=== PATIENT | male | born 1945 | race Caucasian/White ===

== ENCOUNTER 2018-01-12 10:05 | Emergency (ER) | payer MEDICARE, OTHER ==
--- NOTE | 2018-01-12 10:44 | ER Document Report ---
ED Medical Screen (RME) - General Chief Complaint: Swelling Stated Complaint: RIGHT FOOT/ANKLE SWELLING Mode of Arrival: Wheelchair TRAVEL OUTSIDE OF THE [place] IN LAST 30 DAYS: No - HPI Notes: 01/12/18 10:41 72 yr old with c/o of RLL and foot with swelling and scant erythema x 3 days ago. worse with time, nothing makes better. denies any cp, sob, n/v/d. no otc meds tried. pt is wheelchair bound. Noted weakness on his right side from a prior CVA. takes a baby asa. No fevers or chills. denies any pain. I have greeted and performed a rapid initial assessment of this patient. A comprehensive ED assessment and evaluation of the patient, analysis of test results and completion of medical decision making process will be conducted by an additional ED providers - Related Data Allergies/Adverse Reactions: quetiapine [Quetiapine] Adverse Reaction (Severe, Verified 01/12/18 10:10) Hallucinations Past Medical History - Past Medical History Cardiac Medical History: Reports: Hx Atrial Fibrillation - Intermittent, Hx Hypercholesterolemia, Hx Hypertension Neurological Medical History: Reports: Hx Cerebrovascular Accident Past Surgical History: Reports: Hx Abdominal Surgery, Hx Tonsillectomy - Immunizations Immunizations up to date: Yes Hx Diphtheria, Pertussis, Tetanus Vaccination: Yes Physical Exam - Vital signs Vitals: Temp Pulse Resp BP Pulse Ox 98.8 F 73 16 119/78 93 01/12/18 10:17 01/12/18 10:17 01/12/18 10:17 01/12/18 10:17 01/12/18 10:17 - Respiratory Respiratory status: No respiratory distress Chest status: Nontender Breath sounds: Normal Chest palpation: Normal - Cardiovascular Rhythm: Regular Murmur: Yes - Abdominal Notes: noted swelling of right lower calf with erythema, scant pitting edema. skin warm to touch. no open wounds. distal pulses + 2 bilaterally Course - Vital Signs Vital signs: Temp Pulse Resp BP Pulse Ox 98.8 F 73 16 119/78 93 01/12/18 10:17 01/12/18 10:17 01/12/18 10:17 01/12/18 10:17 01/12/18 10:17
[2018-01-12 11:52] LABS: ABSOLUTE EOSINOPHILS # (AUTO) 0.2 10^3/uL (0.0-0.6); ABSOLUTE LYMPHOCYTES (AUTO) 2.7 10^3/uL (0.5-4.7); ABSOLUTE MONOCYTES (AUTO) 0.6 10^3/uL (0.1-1.4); ABSOLUTE NEUT (AUTO) 3.9 10^3/uL (1.7-8.2); BASOPHILS % (AUTO) 0.6 % (0-2); EOSINOPHILS % (AUTO) 2.8 % (0-6); HEMATOCRIT 50.6 % (37.9-51.0); HEMOGLOBIN 17.3 g/dL (13.5-17.0); LYMPHOCYTES % (AUTO) 35.7 % (13-45); MEAN CORPUSCULAR HEMOGLOBIN 30.8 pg (27.0-33.4); MEAN CORPUSCULAR HGB CONC 34.2 g/dL (32.0-36.0); MEAN CORPUSCULAR VOLUME 90 fl (80-97); MONOCYTES % (AUTO) 8.5 % (3-13); PLATELET COUNT 182 10^3/uL (150-450); RED BLOOD COUNT 5.61 10^6/uL (4.35-5.55); RED CELL DISTRIBUTION WIDTH 13.4 % (11.5-14.0); SEGMENTED NEUTROPHILS % (AUTO) 52.4 % (42-78); TOTAL CELLS COUNTED % (AUTO) 100 %; WHITE BLOOD COUNT 7.5 10^3/uL (4.0-10.5)
[2018-01-12 12:16] LABS: ALANINE AMINOTRANSFERASE 72 U/L (21-72); ALBUMIN 4.4 g/dL (3.5-5.0); ALKALINE PHOSPHATASE 61 U/L (38-126); ANION GAP 10 (5-19); ASPARTATE AMINO TRANSFERASE 35 U/L (17-59); BILIRUBIN,DIRECT 0.2 mg/dL (0.0-0.4); BILIRUBIN,TOTAL 0.6 mg/dL (0.2-1.3); BLOOD UREA NITROGEN 19 mg/dL (7-20); C-REACTIVE PROTEIN < 5.0 mg/L (<10.0); CALCIUM 10.2 mg/dL (8.4-10.2); CARBON DIOXIDE 27 mmol/L (22-30); CHLORIDE 105 mmol/L (98-107); GLUCOSE 119 mg/dL (75-110); POTASSIUM 4.5 mmol/L (3.6-5.0); SODIUM 142.2 mmol/L (137-145)
[2018-01-12 12:26] LABS: NT PRO BNP 72 pg/mL (5-900); TROPONIN I < 0.012 ng/mL
--- NOTE | 2018-01-12 13:28 | ER Document Report ---
ED General - General Chief Complaint: Swelling Stated Complaint: RIGHT FOOT/ANKLE SWELLING Mode of Arrival: Wheelchair Information source: Patient, Relative TRAVEL OUTSIDE OF THE [place] IN LAST 30 DAYS: No - HPI Notes: 72 yr old male with a history of CVA presents today with c/o of right lower extremity and foot with swelling x 3 days ago. worse with time, nothing makes better. Has not tried any elevation, compression stockings or reduction consult. Denies cardiac history. Denies any cp, sob, n/v/d. no otc meds tried. pt is wheelchair bound due to having intermittent weakness in his right side from a previous CVA. takes a baby asa. No fevers or chills. denies any pain or any trauma to right ankle or foot. Eating and drinking without issues. Denies fevers, chills, chest pain,palpitations, shortness of breath, dyspnea , nausea, vomiting, diarrhea, abdominal pain, hematuria,blurred vision, double vision, loss of vision, speech changes, LH, dizziness, syncope, headaches, wheezing, ST, URI, neck pain, weakness, bowel or bladder dysfunction, saddle anesthesia, numbness or tingling in bilateral upper or lower extremities equally , muscle paralysis, weakness in bilateral upper or lower extremities equally or rash. Denies IV drug use. - Related Data Allergies/Adverse Reactions: quetiapine [Quetiapine] Adverse Reaction (Severe, Verified 01/12/18 10:10) Hallucinations Past Medical History - General Information source: Patient, Relative - family - Social History Smoking Status: Former Smoker Frequency of alcohol use: None Drug Abuse: None Family History: Reviewed & Not Pertinent Patient has suicidal ideation: No Patient has homicidal ideation: No - Past Medical History Cardiac Medical History: Reports: Hx Atrial Fibrillation - Intermittent, Hx Hypercholesterolemia, Hx Hypertension Neurological Medical History: Reports: Hx Cerebrovascular Accident Renal/ Medical History: Denies: Hx Peritoneal Dialysis Past Surgical History: Reports: Hx Abdominal Surgery, Hx Tonsillectomy - Immunizations Immunizations up to date: Yes Hx Diphtheria, Pertussis, Tetanus Vaccination: Yes Review of Systems - Review of Systems Constitutional: No symptoms reported EENT: No symptoms reported Cardiovascular: No symptoms reported Respiratory: No symptoms reported Gastrointestinal: No symptoms reported Genitourinary: No symptoms reported Male Genitourinary: No symptoms reported Musculoskeletal: See HPI Skin: See HPI Hematologic/Lymphatic: No symptoms reported Neurological/Psychological: No symptoms reported Physical Exam - Vital signs Vitals: Temp Pulse Resp BP Pulse Ox 98.8 F 73 16 119/78 93 01/12/18 10:17 01/12/18 10:17 01/12/18 10:17 01/12/18 10:17 01/12/18 10:17 - Notes Notes: PHYSICAL EXAMINATION: GENERAL: Well-appearing, well-nourished and in no acute distress. HEAD: Atraumatic, normocephalic. EYES: Pupils equal round and reactive to light, extraocular movements intact, sclera anicteric, conjunctiva are normal. ENT: Nares patent, oropharynx clear without exudates. Moist mucous membranes. NECK: Normal range of motion, supple without lymphadenopathy LUNGS: Breath sounds clear to auscultation bilaterally and equal. No wheezes rales or rhonchi. HEART: Regular rate and rhythm without murmurs ABDOMEN: Soft, nontender, nondistended abdomen. No guarding, no rebound. No masses appreciated. Musculoskeletal: Normal range of motion, no pitting or edema. No cyanosis. Distal aspect of right lower extremity with noted swelling, right foot with pedal edema, distal pulses +2 in bilateral lower extremities equally. No open lesions. Homans sign negative bilaterally. Full motor and sensory function in bilateral lower extremities equally, DTR +2 bilateral lower extremities equally and bilaterally, strength 5 out of 5 L>R. No warmth to touch, cap refill less than 3 seconds bilaterally NEUROLOGICAL: Cranial nerves grossly intact. Normal speech, normal gait. Normal sensory, motor exams PSYCH: Normal mood, normal affect. SKIN: Warm, Dry, normal turgor, no rashes or lesions noted. Course - Re-evaluation Re-evalutation: 01/12/18 13:43 Afebrile 72-year-old's vitals are stable. Patient presents with unilater lower extremity swelling, no pain with scant erythema at distal right lower extremity. CBC negative for any leukocytosis or anemia, BNP unremarkable, cardiac enzymes unremarkable, CMP negative for any renal or hepatic dysfunction , electrolytes negative for disturbances. EKG negative for STEMI, normal sinus rhythm. Right lower extremity ultrasound negative for DVT. Discussed results with patient and family, all questions and concerns answered by this provider. Advised patient to follow-up with his primary care provider within 2 days, if any worsening swelling, erythema or any pain to return to the emergency room immediately. Due to their being scanned fluid in the lower extremity, will prophylactically start on Keflex twice a day [place] 5 days. Advised to take with food, eat yogurt daily to prevent loose stool. will discharge with return precautions and follow-up recommendations. Verbal discharge instructions given a the bedside and opportunity for questions given. Medication warnings reviewed. Patient is in agreement with this plan and has verbalized understanding of return precautions and the need for primary care follow-up in the next 24-72 hours. - Vital Signs Vital signs: Temp Pulse Resp BP Pulse Ox 98.8 F 73 16 119/78 93 01/12/18 10:17 01/12/18 10:17 01/12/18 10:17 01/12/18 10:17 01/12/18 10:17 - Laboratory Result Diagrams: 01/12/18 11:29 01/12/18 11:29 Laboratory results interpreted by me: 01/12/18 01/12/18 11:29 11:29 RBC 5.61 H Hgb 17.3 H Glucose 119 H - EKG Interpretation by Or EKG shows normal: Sinus rhythm Rate: Normal Rhythm: NSR When compared to previous EKG there are: Previous EKG unavailable Discharge - Discharge Clinical Impression: Pedal edema Condition: Good Disposition: HOME, SELF-CARE Instructions: Edema, Peripheral ([facility]) Additional Instructions: Follow-up with your primary care doctor within 2 days, return to the emergency room if you have any worsening symptoms. Elevate above the level of your heart is much as he can throughout the day. Take antibiotics as directed with food. Return immediately for any new or worsening symptoms. Follow up with primary care provider, call tomorrow to make followup appointment. Prescriptions: Cephalexin Monohydrate [Keflex 500 mg Capsule] 500 mg PO BID #10 capsule Referrals: HARRIET LUCERO PA-C [Primary Care Provider] - 01/14/18
--- NOTE | 2018-01-12 13:47 | XCELERA REPORT ---
[address] [address] Lower Extremity Venous Evaluation Name: BECKA HSIEH Age: 72 yrs Gender: Male : 1945 Patient Status: Emergency Patient Location: ER Study Date: 01/12/2018 12:57 PM Procedure: Color flow and duplex imaging of the veins of the right lower extremity as well as the left Common Femoral vein. Reason For Study: RLL swelling, pain with some erythema Ordering Physician: MARIO TURNER Performed By: Fabián Shaikh Right Sided Venous Evaluation Normal vessel filling wall to wall, compression and augmentation as well as Colour flow down to the infrageniculate veins. Left Sided Venous Evaluation The left common femoral vein is fully compressible. Spontaneous and phasic flow is present in the left common femoral vein. Interpretation Summary No duplex evidence of DVT or obstruction in the right lower extremity nor in the left Common Femoral vein. : MARIO TURNER > Simeon Last
[2018-01-12 14:20] VITALS: BP 122/76
--- NOTE | 2018-01-12 15:11 | EKG REPORT ---
SEVERITY:- OTHERWISE NORMAL ECG - SINUS RHYTHM BORDERLINE LEFT AXIS DEVIATION : Confirmed by: Salvador Kelley 12-Jan-2018 15:11:03
== END 2018-01-12 14:20 | disposition home or self-care (01) ==
LOC: ER 10:05
DX: R60.1 Generalized edema (principal); I48.91 Unspecified atrial fibrillation; E78.00 Pure hypercholesterolemia, unspecified; I10 Essential (primary) hypertension; Z86.73 Personal history of transient ischemic attack (TIA), and cerebral infarction without residual deficits
CPT/HCPCS: 36415; 80053; 82553; 83880; 84484; 85025; 86140; 93005; 93010; 93971; 99284

== ENCOUNTER → 2018-07-09 | Outpatient (CLI) | payer MEDICARE, OTHER ==
--- NOTE | 2018-07-09 12:51 | XCELERA REPORT ---
[address] [place] [facility] [address] Lower Extremity Venous Evaluation Procedure: Color flow and duplex imaging of the veins of the right lower extremity as well as the left Common Femoral vein. Right Sided Venous Evaluation Normal vessel filling wall to wall, compression and augmentation as well as Colour flow down to the infrageniculate veins. Left Sided Venous Evaluation The left common femoral vein is fully compressible. Spontaneous and phasic flow is present in the left common femoral vein. Interpretation Summary No duplex evidence of DVT or obstruction in the right lower extremity nor in the left Common Femoral vein. Name: BECKA HSIEH Age: 73 yrs Gender: Male : 1945 Patient Status: Outpatient Patient Location: Study Date: 07/09/2018 11:09 AM Reason For Study: RIGHT LEG SWELLING Ordering Physician: HARRIET LUCERO PA-C Performed By: Fabián Shaikh : HARRIET LUCERO PA-C > Simeon Last
== END ==
LOC: SP 10:46
PROVIDERS: ATTEND Physician Assistant
DX: R60.0 Localized edema (principal)
CPT/HCPCS: 93971

== ENCOUNTER → 2020-09-15 | Outpatient (CLI) | payer MEDICARE, OTHER ==
--- NOTE | 2020-09-15 18:09 | RADIOLOGY REPORT (SQ) ---
EXAM DESCRIPTION: CT HEAD WITHOUT IMAGES COMPLETED DATE/TIME: 09/15/2020 2:43 pm REASON FOR STUDY: (R41.3)OTHER AMNESIA R41.3 OTHER AMNESIA COMPARISON: 06/29/2016. TECHNIQUE: Axial images acquired through the brain without intravenous contrast. Images reviewed wi th bone, brain and subdural windows. Additional sagittal and coronal reconstructions were generated. Images stored on PACS. All CT scanners at this facility use dose modulation, iterative reconstruction, and/or weight based d osing when appropriate to reduce radiation dose to as low as reasonably achievable (ALARA). [facility]: Dose Right [facility]: CareDose [facility]: Dose Right [facility]: Teradose 4D [facility]: Cloud Floor RADIATION DOSE: CT Rad equipment meets quality standard of care and radiation dose reduction techniq ues were employed. CTDIvol: 48.9 - 48.9 mGy. DLP: 1918 mGy-cm. mGy. LIMITATIONS: None. FINDINGS: VENTRICLES: Normal size and contour. CEREBRUM: No masses. No hemorrhage. No midline shift. No evidence for acute infarction. Scattered areas of low density in the white matter most likely chronic small vessel ischemic changes. Focal gl iosis left thalamus likely due to chronic infarct. CEREBELLUM: No masses. No hemorrhage. No alteration of density. No evidence for acute infarction. EXTRAAXIAL SPACES: No fluid collections. No masses. ORBITS AND GLOBE: No intra- or extraconal masses. Normal contour of globe without masses. CALVARIUM: No fracture. PARANASAL SINUSES: No fluid or mucosal thickening. SOFT TISSUES: No mass or hematoma. OTHER: No other significant finding. IMPRESSION: 1. No acute intracranial abnormality on noncontrast CT. Chronic small vessel ischemic changes. 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 EVIDENCE OF ACUTE STROKE: NO. COMMENT: Quality ID # [id number]: Final reports with documentation of one or more dose reduction techniques (e.g., Automated exposure control, adjustment of the mA and/or kV according to patient size, use of iterative reconstruction technique) TECHNICAL DOCUMENTATION: JOB ID: [id number] [email or web address]- All Rights Reserved Reading location - IP/workstation name: [email or web address]
== END ==
LOC: RAD 16:58
PROVIDERS: ATTEND Physician Assistant
DX: R41.3 Other amnesia (principal)
CPT/HCPCS: 70450